=== PATIENT | male | born 2000 | race Caucasian/White ===

== ENCOUNTER 2020-07-23 21:41 | Emergency (ER) | payer OTHER ==
[~2020-07-23] VITALS: Ht 182.9 cm; Wt 90.3 kg
[2020-07-23] MEDS ORDERED: IBUP-1022 PO (22:24)
[2020-07-23] MEDS ORDERED: AUGM875T28 PO (22:24)
[2020-07-23] MEDS ORDERED: IBUPROFEN 600MG TAB PO ONE (22:25)
[2020-07-23] MEDS ORDERED: AUGMENTIN 875 MG TAB PO ONE (22:25)
[2020-07-23 22:59] VITALS: BP 127/67
== END 2020-07-23 23:01 | disposition home or self-care (01) ==
LOC: M ED 21:41
DX: H72.91 Unspecified perforation of tympanic membrane, right ear (principal); H92.01 Otalgia, right ear; F90.9 Attention-deficit hyperactivity disorder, unspecified type; Z88.8 Allergy status to other drugs, medicaments and biological substances

== ENCOUNTER 2021-01-21 08:48 | Emergency (ER) | payer OTHER ==
[~2021-01-21] VITALS: Ht 182.9 cm; Wt 88.6 kg
[~2021-01-21 08:48] MED LIST: AUGM875T28 PO; IBUP-1022 PO
[2021-01-21 08:50] VITALS: BP 123/74
[2021-01-21] MEDS ORDERED: MUPI2OI TOP (10:10)
== END 2021-01-21 10:34 | disposition home or self-care (01) ==
LOC: M ED 08:48
DX: L08.9 Local infection of the skin and subcutaneous tissue, unspecified (principal); F90.9 Attention-deficit hyperactivity disorder, unspecified type; F91.3 Oppositional defiant disorder; Z88.8 Allergy status to other drugs, medicaments and biological substances